=== PATIENT | male | born 1990 | race Caucasian/White ===

== ENCOUNTER → 2021-04-27 | Day surgery (SDC) | payer MEDICARE, OTHER ==
[~2021-04-27] VITALS: Ht 203.2 cm; Wt 202.3 kg
[~2021-04-27] MED LIST: ATIVAN1 MG PO; ATORVASTATIN PO; BENTYL 20MG TAB20 MG PO; CELEXA PO; CLOMIPRAMINE PO; GEODON60 MG PO; GLUCOPHAGE 500500 MG PO; HYDROCODON-ACE1 EAC2 PO; IBUPROFEN PO; LOPERAMIDE2 M1 PO; OMEPRAZOLE40 MG PO; SINGULAIR10 MG PO; TOPROL XL 25 MG25 MG PO; VALSARTAN160 MG PO; VYVANSE40 MG PO; XYZAL PO
[2021-04-27 11:56] LABS: BUN/CREATININE RATIO 16 (0-10)
== END | disposition home or self-care (01) ==
LOC: OR 08:45
PROVIDERS: Orthopaedic Surgery
DX: S83.211A Bucket-handle tear of medial meniscus, current injury, right knee, initial encounter (principal); M23.8X1 Other internal derangements of right knee; M94.261 Chondromalacia, right knee; M23.300 Other meniscus derangements, unspecified lateral meniscus, right knee; F84.0 Autistic disorder; M17.11 Unilateral primary osteoarthritis, right knee; I10 Essential (primary) hypertension; E78.00 Pure hypercholesterolemia, unspecified; K21.9 Gastro-esophageal reflux disease without esophagitis; E66.9 Obesity, unspecified; W19.XXXA Unspecified fall, initial encounter; Z91.81 History of falling; Y92.9 Unspecified place or not applicable; Z20.822 Contact with and (suspected) exposure to COVID-19
CPT/HCPCS: 36415; 80048; J0171; J0690; J1100; J2001; J2250; J2405; J2704; J3010; J7030; J7120